=== PATIENT | female | born 1985 | race American Indian/Alaskan Native ===

== ENCOUNTER 2017-04-15 05:47 | Day surgery (SDC) | payer OTHER ==
[2017-04-15] MEDS ORDERED: LACTATED RINGERS 1,000 ML IV SCH (07:00)
[2017-04-15] MEDS ORDERED: ANCEF/STERILE WATER 2 GM/20 ML IV NR (07:00)
[2017-04-15] MEDS ORDERED: PEPCID PO NR (07:00)
[2017-04-15] MEDS: VERSED IV NR ×2 (07:11→08:23)
[2017-04-15] MEDS ORDERED: ZOFRAN IV PRN ×2 (07:12→12:14)
[2017-04-15] MEDS ORDERED: NORCO 5/325 PO PRN ×2 (07:12→12:12)
--- NOTE | 2017-04-15 07:12 | Anesthesia Day of Surgery ---
Anesthesia Day of Surgery - Day of Surgery Patient Examined: Yes Patient H&P Reviewed: Yes Patient is NPO: Yes
--- NOTE | 2017-04-15 07:12 | Anesthesia Consultation ---
Anesthesia Consult and Med Hx Date of service: 04/15/17 - Airway Anesthetic Teeth Evaluation: Good ROM Head & Neck: Adequate Mental/Hyoid Distance: Adequate Mallampati Class: Class I Intubation Access Assessment: Good - Pulmonary Exam CTA: Yes - Cardiac Exam Cardiac Exam: RRR - Pre-Operative Health Status ASA Pre-Surgery Classification: ASA1 Proposed Anesthetic Plan: General - Central Nervous System Hx Psychiatric Problems: No - Other Systems Hx Alcohol Use: Yes (OCCAS) Hx Substance Use: No Hx Cancer: No
[2017-04-15 07:21] LABS: Basophils % (Auto) 0.3 % (0.0-1.8); Eosinophils % (Auto) 1.1 % (0.0-4.3); Hematocrit 36.6 % (30.3-42.9); Hemoglobin 12.1 gm/dl (10.1-14.3); Mean Corpuscular HGB Conc 33 % (30-34); Mean Corpuscular Hemoglobin 29 pg (28-32); Mean Corpuscular Volume 88 fl (79-97); Platelet Count 207 K/mm3 (140-440); Red Blood Count 4.15 M/mm3 (3.65-5.03); Red Cell Distribution Width 12.8 % (13.2-15.2)
[2017-04-15] MEDS ORDERED: SUBLIMAZE ONE ×4 (07:56→09:22)
[2017-04-15] MEDS ORDERED: DIPRIVAN 10 MG/ML IV ONE (07:56)
[2017-04-15] MEDS ORDERED: DECADRON ONE (07:57)
[2017-04-15] MEDS ORDERED: XYLOCAINE MPF 2% ONE (07:57)
[2017-04-15] MEDS ORDERED: ZOFRAN ONE (07:57)
[2017-04-15] MEDS ORDERED: LACTATED RINGERS 1,000 ML ONE (08:58)
[2017-04-15] MEDS ORDERED: BREVIBLOC IV ONE (10:20)
[2017-04-15] MEDS ORDERED: DILAUDID ONE (10:38)
[2017-04-15] MEDS: MORPHINE IV PRN ×4 (11:25→12:00)
--- NOTE | 2017-04-15 11:34 | Operative Report ---
SERVICE: Plastic Surgery PREOPERATIVE DIAGNOSIS: Macromastia. POSTOPERATIVE DIAGNOSIS: Macromastia. PROCEDURE: Bilateral reduction mammoplasty. SURGEON: Meir Gomez M.D. LOCATOR SPECIALIST: Raffi Franco CSA. FINDINGS: 980 gm removed from the right breast, 860 gm removed from the left breast. DESCRIPTION OF PROCEDURE: The patient was brought into the operating room and placed on the table in supine position. Following administration of general anesthesia, bilateral breasts were prepped with Betadine solution and draped in the usual sterile manner. A #10 blade scalpel was used to make a circumareolar skin incision followed by de-epithelization of an inferior dermal pedicle. Modified Reeder pattern skin markings were incised with scalpel and deepened through subcutaneous fat and breast tissue using the electrocautery. Skin flaps were raised in standard manner as was fashioning of an inferior central mound pedicle. Breasts tissue was resected and sent to pathology as specimen. Hemostasis controlled using the electrocautery. Skin flaps were closed in standard manner using interrupted and running subcuticular 2-0 Monocryl sutures. Mastisol, Steri-Strips, and sterile dressings applied. The patient tolerated the procedure well and returned to recovery room in stable condition. JOB# [id number] FTW/MOY
--- NOTE | 2017-04-15 11:48 | Post Anesthesia Evaluation ---
- Post Anesthesia Evaluation Patient Participated: Yes Airway Patent: Yes Stable Respiratory Function: Yes Temp > 96.8F: Yes Pain Manageable: Yes Adequeate Hydration: Yes Anesthesia Complications: No
[2017-04-15] MEDS ORDERED: MORPHINE ONE (12:09)
[2017-04-15 13:03] VITALS: BP 100/60
--- NOTE | 2017-04-15 16:52 | Discharge Summary ---
Short Stay Discharge Plan Activity: no restrictions Weight Bearing Status: Full Weight Bearing Diet: regular Wound: remove dressing (72HRS) Durable Medical Equipment Needed Upon Discharge: other ([facility]) Additional Instructions: CALL FOR F/U APPT. FOLLOW SURGEON INSTRUCTION. HOME WITH [facility] DRAIN-EMPTY, MEASURE AND RECORD OUTPUT EVERY 4-6 HOURS AND NEEDED. NORCO(2)TABS.) GIVEN AT 1120AM. Follow up with: LILLY SORTO MD [Primary Care Provider] - 6 Weeks Forms: Outpatient [facility] DC Inst.
--- NOTE | 2017-04-15 16:54 | Short Stay Summary ---
Short Stay Documentation Date of service: 04/15/17 - Allergies and Medications Current Medications: Allergies No Known Allergies Allergy (Verified 04/12/17 13:07) Home Medications Medication Instructions Recorded Confirmed Last Taken Type No Known Home Medications [No 04/12/17 04/12/17 Unknown History Reported Home Medications] Active Medications Acetaminophen/Hydrocodone Bitart (Ray 5/325) 2 each PO ONCE PRN PRN Reason: Pain, Moderate (4-6) Stop: 04/15/17 23:00 Cefazolin Sodium (Ancef/Sterile Water 2 Gm/20 Ml) 2 gm IV PREOP NR Stop: 04/15/17 23:59 Famotidine (Pepcid) 20 mg PO PREOP NR Stop: 04/15/17 23:59 Last Admin: 04/15/17 06:50 Dose: 20 mg Lactated Ringer's (Lactated Ringers) 1,000 mls @ 100 mls/hr IV DIRECT AIMEE Last Admin: 04/15/17 07:00 Dose: 100 mls/hr Midazolam HCl (Versed) 2 mg IV PREOP NR Stop: 04/15/17 23:59 Last Admin: 04/15/17 08:23 Dose: 2 mg - Brief post op/procedure progress note Date of procedure: 04/15/17 Pre-op diagnosis: MACROMASTIA Post-op diagnosis: same Procedure: KELY. BREAST REDUCTION Anesthesia: GETA Surgeon: DAR GILBERT JR Estimated blood loss: 50-100ml Specimen disposition: to lab Condition: stable - Disposition Condition at discharge: Good Short Stay Discharge Plan Additional Instructions: CALL FOR F/U APPT. FOLLOW SURGEON INSTRUCTION. HOME WITH [facility] DRAIN-EMPTY, MEASURE AND RECORD OUTPUT EVERY 4-6 HOURS AND NEEDED. NORCO(2)TABS.) GIVEN AT 1120AM. Follow up with: LILLY SORTO MD [Primary Care Provider] - 6 Weeks Forms: Outpatient Surgery DC Inst.
== END 2017-04-15 13:37 | disposition home or self-care (01) ==
LOC: OR 05:47
PROVIDERS: ATTEND Plastic Surgery
DX: N62 Hypertrophy of breast (principal); Z98.890 Other specified postprocedural states; Z79.899 Other long term (current) drug therapy
CPT/HCPCS: 19318; 36415; 81025; 85025; 88305; J0690; J1100; J1170; J2250; J2270; J2405; J2704; J3010; J7120